=== PATIENT | female | born 1995 | race African-American/Black ===

== ENCOUNTER 2017-08-04 18:11 | Emergency (ER) | payer SELFPAY ==
[2017-08-04 18:27] VITALS: BP 127/89; PULSE 79; RESP 18; TEMP 98.6; O2SAT 100
[2017-08-04] MEDS ORDERED: AMOX875T PO (20:38)
--- NOTE | 2017-08-04 20:43 | PD ---
HPI Chief Complaint: ENT Complaint Time Seen by Provider: 20:22 Travel History International Travel<30 days: No Contact w/Intl Traveler<30days: No Traveled to known affect area: No History of Present Illness HPI Patient comes emergency department complaining of burning sensation in her throat that began 4 days ago. Patient reports last week she was having flulike symptoms with fever that all resolved then she developed a sore throat several days later. Patient reports taking [id number] cold and flu medication as well as gargling with warm salt water for symptomatic relief. Pain is worse with swallowing. Denies radiation of the pain. Denies any known sick contacts. Patient denies any fevers, nausea, vomiting, chest pain, shortness of breath, neck pain, abdominal pain, loss change in bowel or bladder, or . [facility] Past Medical History Medical History: Denies Significant Hx ?: Not LMP: 07/20/17 Social History Alcohol Use: No Tobacco Use: No Substance Use: No Allergies-Medications (Allergen,Severity, Reaction): Coded Allergies: ceftriaxone (Verified Allergy, Unknown, rash, 08/04/17) Reported Meds & Prescriptions Reported Meds & Active Scripts Active Amoxicillin 875 Mg Tab 875 Mg PO BID 10 Days Review of Systems Except as stated in HPI: all other systems reviewed are Neg Physical Exam Narrative GENERAL: Well-developed, well nourished, in no acute distress, and non-ill appearing. SKIN: Focused skin assessment warm and dry. HEAD: Atraumatic. Normocephalic. EYES: Pupils equal and round. EOMI. No scleral icterus. No injection or drainage. ENT: No nasal bleeding or discharge. Mucous membranes pink and moist. Tympanic membranes pearly shafer bilaterally. Posterior pharynx erythematous with exudate. Uvula is midline. Patient is swallowing own saliva and speaking in full sentences without difficulty. NECK: Trachea midline. No cervical lymphadenopathy. Supple. No nuclear rigidity. CARDIOVASCULAR: Regular rate and rhythm. No murmur appreciated. RESPIRATORY: No accessory muscle use. No respiratory distress. Clear to auscultation. Breath sounds equal bilaterally. MUSCULOSKELETAL: No obvious deformities. No clubbing. No cyanosis. No edema. Full range of motion. NEUROLOGICAL: Awake and alert. No obvious cranial nerve deficits. Motor grossly within normal limits. Normal speech. PSYCHIATRIC: Appropriate mood and affect; insight and judgment normal. Data Data Last Documented VS Vital Signs Date Time Temp Pulse Resp B/P (MAP) Pulse Ox O2 Delivery O2 Flow Rate FiO2 08/04/17 18:27 98.6 79 18 127/89 (102) 100 Orders Orders Ed Discharge Order (08/04/17 20:46) [facility] Medical Decision Making Medical Screen Exam Complete: Yes Emergency Medical Condition: Yes Differential Diagnosis Strep pharyngitis, viral pharyngitis, URI, viral syndrome Narrative Course Patient looks great, non-ill appearing. The patient is tolerating fluids and is well hydrated. Appears pharyngitis possibly Strep. No clinical evidence by history or evaluation to suspect meningitis and/or sepsis. There was no evidence to suggest peritonsillar abscess or retropharyngeal abscess. I discussed with the patient, diagnosis, plan of care and to follow up with the patients primary physician. The patient was given antibiotics. The patient was instructed to return if the worsens in anyway, especially if not tolerating fluids, increased pain or swelling, difficulty swallowing or breathing, or as needed. The patient agreed with plan. Patient in no obvious distress upon re-evaluation. Patient was asked if they wanted to speak to my attending, which the patient did not wish to do at this time. Any questions/concerns in reference to patient diagnosis/condition discussed and clarified prior to patient's discharge. Reinforced sheer importance of close follow up with patient's primary physician or primary care clinic. Instructed patient to return to ED immediately, if symptoms return/ worsen. Patient showed understanding of above instructions. Further instructions and recommendations were detailed in discharge paperwork. Patient ambulated without difficulty out of ED at discharge. Diagnosis Primary Impression: Exudative pharyngitis Referrals: Franky Emanuel MD [facility] Patient Instructions: General Instructions, Pharyngitis (ED) Additional Instructions: Follow-up with your primary care physician and/or ENT in 3-5 days for reevaluation. Take all medication as prescribed. Use [id number] Tylenol and ibuprofen as needed for pain and/or fever control. Follow instructions on the packaging. Drink plenty of non-caffeinated and nonalcoholic fluids. Continue gargling with warm salt water gargles. Do not swallow salt water. Return to the emergency department if symptoms get worse. Med/Other Pt SpecificInfo: Prescription(s) given Scripts Amoxicillin (Amoxicillin) 875 Mg Tab 875 MG PO BID for Infection for 10 Days, #20 TAB 0 Refills Prov: Lizzeth Ferrell MD 08/04/17 Disposition: 01 DISCHARGE HOME Condition: Stable Josesito Singh Aug 04, 2017 20:43
== END 2017-08-04 21:04 | disposition home or self-care (01) ==
LOC: NEPK 18:11
DX: J02.9 Acute pharyngitis, unspecified (principal); Z88.8 Allergy status to other drugs, medicaments and biological substances
CPT/HCPCS: 99283

== ENCOUNTER 2017-08-06 00:31 | Emergency (ER) | payer SELFPAY ==
[~2017-08-06] VITALS: Ht 167.6 cm; Wt 71.9 kg
[~2017-08-06 00:31] MED LIST: AMOX875T PO
[2017-08-06 00:35] VITALS: BP 126/74; PULSE 86; RESP 18; TEMP 98; O2SAT 100
--- NOTE | 2017-08-06 00:53 | PD ---
HPI Chief Complaint: ENT Complaint Time Seen by Provider: 00:43 Travel History International Travel<30 days: No Contact w/Intl Traveler<30days: No Traveled to known affect area: No History of Present Illness HPI The patient is a 22-year-old female that has had bilateral throat pain for 5 days. She came in on Wednesday and empirically was treated with amoxicillin, a throat culture was not done. She complains of slight ear pain bilaterally, throbbing, burning throat pain with a pain level intensity of 8/10. She also complains of pain on the lymph nodes below her ears and on the anterior cervical chain. She states there is no possibility of . Her last menstrual period was normal 2 weeks ago. [facility] Social History Alcohol Use: No Tobacco Use: No Substance Use: No Allergies-Medications (Allergen,Severity, Reaction): Coded Allergies: ceftriaxone (Verified Allergy, Unknown, rash, 08/06/17) Reported Meds & Prescriptions Reported Meds & Active Scripts Active Amoxicillin 875 Mg Tab 875 Mg PO BID 10 Days Review of Systems Except as stated in HPI: all other systems reviewed are Neg Physical Exam Narrative GENERAL: Well-nourished, well-developed patient in moderate apparent distress with her throat pain. Her vital signs are normal. SKIN: Focused skin assessment warm/dry. HEAD: Normocephalic. EYES: No scleral icterus. No injection or drainage. NECK: Supple, trachea midline. No JVD or lymphadenopathy. CARDIOVASCULAR: Regular rate and rhythm without murmurs, gallops, or rubs. RESPIRATORY: Breath sounds equal bilaterally. No accessory muscle use. GASTROINTESTINAL: Abdomen soft, non-tender, nondistended. MUSCULOSKELETAL: No cyanosis, or edema. BACK: Nontender without obvious deformity. No CVA tenderness. ENT: The tympanic membranes both appear slightly white but are shiny and no evidence of infection. The throat shows exudate bilaterally without abscess. There is considerable erythema of the throat as well. Data Data Last Documented VS Vital Signs Date Time Temp Pulse Resp B/P (MAP) Pulse Ox O2 Delivery O2 Flow Rate FiO2 08/06/17 00:51 18 08/06/17 00:35 98.0 86 126/74 (91) 100 Orders Orders Monoscreen (08/06/17 00:44) Group A Rapid Strep Screen (08/06/17 00:54) Methylprednisolone So Succ Inj (Solumedr (08/06/17 01:15) Strep Culture (Group A) (08/06/17 01:00) Labs Laboratory Tests Test 08/06/17 01:00 [facility] Medical Decision Making Medical Screen Exam Complete: Yes Emergency Medical Condition: Yes Medical Record Reviewed: Yes Interpretation(s) Strep screen is negative for group A strep antigen. Differential Diagnosis Strep pharyngitis, mono pharyngitis, nonspecific viral pharyngitis Narrative Course The patient likely has a viral pharyngitis. She is to continue the amoxicillin , she is a set up for an ear infection and this may help prevent that. Plan: She will be given prednisone 50 mg daily for 6 days. She is to follow-up with her primary care physician. Diagnosis Primary Impression: Viral pharyngitis Additional Instructions: Take the prednisone one tablet daily for 6 days. Follow-up with her primary care physician. The pain pill as one or 2 every 4-6 hours as needed for pain. Do not drink alcohol or drive on the Percocet 5. Med/Other Pt SpecificInfo: Prescription(s) given Scripts Prednisone (Prednisone) 50 Mg Tab 50 MG PO DAILY for 6 Days, #6 TAB 0 Refills Prov: Virgil Rodney MD 08/06/17 Oxycodone-Acetaminophen (Percocet) 5-325 mg Tab 1-2 TAB PO Q6H Y for PAIN, #20 TAB 0 Refills Prov: Virgil Rodney MD 08/06/17 Disposition: 01 DISCHARGE HOME Condition: Stable Virgil Rodney MD Aug 06, 2017 00:53
[2017-08-06] MEDS ORDERED: methylPREDNISolone SOD SUCC 125 MG/2 ML VIAL IV PUSH ONE (01:15)
[2017-08-06] MEDS ORDERED: PERC5TAB12 PO (01:45)
[2017-08-06] MEDS ORDERED: PRED50 PO (01:45)
[2017-08-06 02:00] VITALS: BP 122/74; PULSE 78; RESP 18; O2SAT 99
[2017-08-06 02:43] LABS: MONOSCREEN POS (NEG)
== END 2017-08-06 02:02 | disposition home or self-care (01) ==
LOC: PHED 00:31
DX: B27.90 Infectious mononucleosis, unspecified without complication (principal)
CPT/HCPCS: 86308; 87081; 87880; 96374; 99283; J2930